=== PATIENT | female | born 1980 | race American Indian/Alaskan Native ===

== ENCOUNTER 2017-02-11 07:25 | Emergency (ER) | payer BC, OTHER ==
[2017-02-11 07:39] VITALS: BP 176/98
== END 2017-02-11 07:35 | disposition left against medical advice (07) ==
LOC: ED 07:25
DX: Z53.21 Procedure and treatment not carried out due to patient leaving prior to being seen by health care provider (principal)
CPT/HCPCS: 93005; 93010